=== PATIENT | female | born 1970 | race Caucasian/White ===

== ENCOUNTER 2023-07-01 08:10 | Emergency (ER) | payer BC, SELFPAY ==
[2023-07-01] VITALS (8 sets, daily range): BP systolic 113–136; BP diastolic 67–81; PULSE 104–117; RESP 12–14; TEMP 36.6; O2SAT 95–99
--- NOTE | 2023-07-01 08:35 | ED.OVERDOSE ---
HPI - Overdose General Time Seen by Provider: 08:35 Date Seen: 07/01/23 Chief Complaint: Overdose Stated Complaint: Overdose Time Seen by Provider: 07/01/23 08:25 Source: patient, family and RN notes reviewed Mode of arrival: ambulatory Limitations: no limitations History of Present Illness HPI Narrative: This 52-year-old female is brought in by her son after she admitted to taking amlodipine this morning. She has chronic neck issues, was tired and reported the just wanted to end it. She was recently initiated on sertraline. She denies other co ingestions. She took an estimated 68 tablets of 5 mg amlodipine. They estimate is about 340 mg of amlodipine ingested between 6 and 7:00 a.m. this morning. Nursing staff did call poison Control. The peak affects maybe delayed 6-12 hours. They did recommend low threshold to transfer to ICU. Patient is not wanting to talk to me very much about this at this time. Her son is present. She does shake her head yes that this was intentional to harm herself. MD complaint: intentional overdose Timing confirmed by: family member Intent: suicide attempt, wanted to go to sleep and wanted to escape Related Data Home Medications Medication Instructions Recorded Confirmed amlodipine 5 mg tablet 5 mg PO DAILY 07/01/23 07/01/23 omeprazole 20 mg tablet,delayed 20 mg PO DAILY 07/01/23 07/01/23 release sertraline 50 mg tablet 50 mg PO Q24H 07/01/23 07/01/23 Allergies Allergy/AdvReac Type Severity Reaction Status Date / Time No Known Drug Allergies Allergy Verified 07/01/23 08:24 Review of Systems Status of ROS: Reports: 6 or more systems reviewed and unremarkable except as noted in History and below Exam Const: Vital Signs, click to edit/add: Vital Signs - 24 hr 07/01/23 08:24 07/01/23 08:25 Temperature 98 F Pulse Rate [Pulse Oximeter] 117 H Respiratory Rate 14 Blood Pressure [Le ft Upper Arm] 128/79 Pulse Oximetry 98 95 Oxygen Delivery Me thod Room Air Patient is lying in bed in exam room 8. Minimally communicative but will open eyes and follow commands. She is not sedated that I can see but does not have good eye contact with me. She is breathing independently in protecting her airway. She is mildly tachycardic on her initial vitals. GCS currently is 15/15. She does keep her eyes closed most of the time. When she does open her eyes pupils are round, symmetric, conjugate gaze, sclera clear. Symmetrical facial function. Neck is supple, no adenopathy or masses. CV slightly fast but regular, no murmur. Lungs are clear, no tachypnea, no wheezing or crackles. Abdomen is soft, nontender, no organomegaly or masses. No lower extremity edema. Moving limbs independently, did ambulate into the ED of her own accord. Documenting provider has reviewed patient's vital signs: yes Course Reevaluation(s) Time of Reevaluation #1: 09:30 Reevaluation #1: Patient has stable blood pressures, systolics still in the 120s. We are still awaiting urine toxicology. We are awaiting bed placement at [facility]. Consultations Consultation #1: Did speak with Dr. Amaro the disciplinary hearing officer at [facility]. He does accept this patient. There is likely going to be a bed delay of unknown time frame. We will contact them if the patient does start to show further instability. Time: 08:39 Vital Signs Vital signs: Initial Vital Signs Pulse Oximetry 98 07/01/23 08:24 Vital Signs Pulse Oximetry 98 07/01/23 08:24 Temperature 98 F 07/01/23 08:25 Pulse Rate 117 H 07/01/23 08:25 Respiratory Rate 14 07/01/23 08:25 Blood Pressure 128/79 07/01/23 08:25 Pulse Oximetry 95 07/01/23 08:25 Oxygen Delivery Method Room Air 07/01/23 08:25 MDM - Overdose Lab Data Attestation: I reviewed the patient's lab results. Labs: Lab Results 07/01/23 Range/Units 08:46 WBC 6.98 (4.50-11.00) K/uL RBC 5.82 H (4.00-5.20) m/uL Hgb 16.6 H (12.0-16.0) gm/dL Hct 46.8 (33.0-51.0) % MCV 80 (80-100) fL MCH 29 (26-34) pg MCHC 36 (32-36) gm/dL RDW Coeff of [place] 12.1 (11.5-15.5) % Plt Count 309 (140-440) K/uL Neut % (Auto) 69.1 (42.0-72.0) % Lymph % (Auto) 20.9 (20-44) % [place] % (Auto) 8.7 (0.0-11.0) % Eos % (Auto) 0.6 (0.0-7.0) % Baso % (Auto) 0.6 (0.0-3.0) % Neut # (Auto) 4.82 (1.7-7.0) K/uL Lymph # (Auto) 1.46 (0.90-2.90) K/uL [place] # (Auto) 0.60 (0.00-0.90) K/UL Eos # (Auto) 0.04 (0.00-0.50) K/uL Baso # (Auto) 0.04 (0.00-0.30) K/uL Abs Immat Gran (auto) 0.01 (0.00-0.30) K/uL Imm/Tot Granulo (auto) 0.1 % INR 0.93 (0.91-1.10) APTT 29 (23-33) Seconds VBG pH 7.534 H (7.32-7.43) VBG pCO2 32 L (40-50) mmHG VBG pO2 192.0 H (25-47) mmHG VBG HCO3 27 (21-28) mmol/L Sodium 139 (135-149) mmol/L Potassium 3.4 L (3.6-5.1) mmol/L Chloride 101 (96-114) mmol/L Carbon Dioxide 29 (20-32) mmol/L Anion Gap 9 (7-15) mEq/L BUN 8 (7-30) mg/dL Creatinine 0.7 (0.5-1.5) mg/dL Estimated GFR 103 ml/min Glucose 138 H (60-115) mg/dL Lactate 1.2 (0.5-1.9) mmol/L Calcium 9.8 (8.4-10.6) mg/dL Total Bilirubin 1.2 (0.1-1.5) mg/dL AST 37 H (12-35) U/L ALT 32 (4-35) U/L Alkaline Phosphatase 79 (40-150) U/L Troponin I < 0.01 L (0.01-0.04) ng/mL Total Protein 8.8 H (6.0-8.3) g/dL Albumin 5.1 H (3.3-5.0) g/dL Salicylates < 1.0 L (1.0-10) mg/dL Acetaminophen < 10.0 L (10.0-30.0) ug/mL Ethyl Alcohol < 0.01 L (0.01-0.03) % ECG Data Attestation: I personally reviewed and interpreted this ECG as follows: (Sinus tachycardia, 111 beats per minute. No ischemic change, no infarct. QT corrected 432 milliseconds.) ECG interpretation date: 07/01/23 ECG interpretation time: 08:30 Prior ECG tracings: not available for review Critical Care Time Critical Care Time Critical Care Time: Yes Attestation: The patient required my highest level preparedness to intervene emergently and I personally spent this critical care time directly and personally managing the patient. This critical care time included: Obtaining a history; Examining the patient; Pulse oximetry; Ordering and reviewing of studies; Arranging urgent treatment with development of a management plan; Evaluation of patients response to treatment; Frequent reassessment discussions with other providers. This critical care time was performed to assess and manage the high probability of imminent life-threatening deterioration that could result in multiorgan failure. It was exclusive of separate billable procedures and treating other patients and teaching time. Total Critical Care Time in Minutes: 30 Discharge Plan Discharge Clinical Impression: Suicide attempt by drug ingestion Qualifiers: Encounter type: initial encounter Qualified Code(s): T50.902A - Poisoning by unspecified drugs, medicaments and biological substances, intentional self-harm, initial encounter Drug overdose Qualifiers: Encounter type: initial encounter Injury intent: intentional self-harm Qualified Code(s): T50.902A - Poisoning by unspecified drugs, medicaments and biological substances, intentional self-harm, initial encounter Patient Disposition: Xfer [facility] Discharge Location: [facility] Prescriptions: No Action amlodipine 5 mg tablet 5 mg PO DAILY sertraline 50 mg tablet 50 mg PO Q24H omeprazole 20 mg tablet,delayed release (DR/EC) 20 mg PO DAILY Stand Alone Forms: [employer] Info Instructions
[2023-07-01 08:55] LABS: Basophils Absolute Auto 0.04 K/uL (0.00-0.30); Basophils Percent Auto 0.6 % (0.0-3.0); Eosinophils Absolute Auto 0.04 K/uL (0.00-0.50); Eosinophils Percent Auto 0.6 % (0.0-7.0); Hematocrit 46.8 % (33.0-51.0); Hemoglobin* 16.6 gm/dL (12.0-16.0); Immature Granulocytes Abs Auto 0.01 K/uL (0.00-0.30); Immature Granulocytes Pct Auto 0.1 %; Lymphocytes Absolute Auto 1.46 K/uL (0.90-2.90); Lymphocytes Percent Auto 20.9 % (20-44); Mean Corpuscular HGB Conc 36 gm/dL (32-36); Mean Corpuscular Hemoglobin 29 pg (26-34); Mean Corpuscular Volume 80 fL (80-100); Monocytes Percent Auto 8.7 % (0.0-11.0); Neutrophils Absolute Auto 4.82 K/uL (1.7-7.0); Neutrophils Percent Auto 69.1 % (42.0-72.0); Platelet Count* 309 K/uL (140-440); RDW Coefficient of Variation % 12.1 % (11.5-15.5); Red Blood Count 5.82 m/uL (4.00-5.20); White Blood Count* 6.98 K/uL (4.50-11.00)
[2023-07-01 08:57] LABS: HCO3 VBG 27 mmol/L (21-28); Lactate* 1.2 mmol/L (0.5-1.9); PCO2 VBG 32 mmHG (40-50); pH VBG 7.534 (7.32-7.43)
[2023-07-01 08:58] LABS: Slide Review Reflex No
[2023-07-01 09:07] LABS: Albumin* 5.1 g/dL (3.3-5.0); Chloride* 101 mmol/L (96-114)
[2023-07-01 09:08] LABS: Potassium* 3.4 mmol/L (3.6-5.1); Sodium* 139 mmol/L (135-149)
[2023-07-01 09:09] LABS: INR 0.93 (0.91-1.10)
[2023-07-01 09:10] LABS: Anion Gap 9 mEq/L (7-15); Aspartate Amino Transferase* 37 U/L (12-35); Bilirubin Total* 1.2 mg/dL (0.1-1.5); Carbon Dioxide* 29 mmol/L (20-32); Creatinine* 0.7 mg/dL (0.5-1.5); Estimated Glomerular Filt Rate 103 ml/min; Partial Thromboplastin Time* 29 Seconds (23-33); Total Protein* 8.8 g/dL (6.0-8.3)
[2023-07-01 09:11] LABS: Alanine Aminotransferase* 32 U/L (4-35); Alkaline Phosphatase* 79 U/L (40-150); Blood Urea Nitrogen* 8 mg/dL (7-30); Calcium* 9.8 mg/dL (8.4-10.6); Glucose* 138 mg/dL (60-115)
[2023-07-01 09:13] LABS: Acetaminophen* < 10.0 ug/mL (10.0-30.0); Ethanol* < 0.01 % (0.01-0.03)
[2023-07-01 09:17] LABS: Salicylate* < 1.0 mg/dL (1.0-10)
[2023-07-01 09:27] LABS: Troponin I* < 0.01 ng/mL (0.01-0.04)
--- NOTE | 2023-07-01 10:24 | ED.NURSE ---
Update given to [facility] Pharmacist.
== END 2023-07-01 10:15 | disposition short-term general hospital (02) ==
PROVIDERS: Emergency Provider Family Medicine; PCP Family Medicine
DX: T46.1X2A Poisoning by calcium-channel blockers, intentional self-harm, initial encounter (principal)
CPT/HCPCS: 36415; 80053; 80143; 80179; 80306; 82077; 82803; 83605; 84484; 85025; 85610; 85730; 93005; 94761; 99284; 99285; 99291

== ENCOUNTER 2023-07-01 10:08 | Outpatient (CLI) | payer OTHER, BC, SELFPAY | END 2023-07-01 10:10 | disposition home or self-care (01) | LOC: AMB 08-11 11:38 | PROVIDERS: PCP Family Medicine; Visit Provider Family Medicine | DX: R53.83 Other fatigue (principal); T46.1X2A Poisoning by calcium-channel blockers, intentional self-harm, initial encounter; Y92.9 Unspecified place or not applicable | CPT/HCPCS: A0425; A0427 ==